=== PATIENT | male | born 1990 | race Caucasian/White ===

== ENCOUNTER 2023-11-11 11:04 | Outpatient (OUT) | payer MEDICAID, SELFPAY ==
[2023-11-11 11:41] LABS: Basophils Percent Auto 0.8 % (0.2-2.0); Eosinophils Absolute Auto 0.4 10^3/uL (0.0-0.7); Hematocrit 49.2 % (42.0-54.0); Hemoglobin 16.8 g/dL (14.0-18.0); Immature Granulocytes Abs Auto 0.01 10^3/uL (0.00-0.03); Immature Granulocytes Pct Auto 0.2 % (0.0-0.5); Mean Corpuscular HGB Conc 34.1 g/dL (29.9-35.2); Mean Corpuscular Hemoglobin 28.6 pg (25.9-34.0); Mean Corpuscular Volume 83.7 fL (80.0-94.0); Mean Platelet Volume 10.4 fL (9.5-13.5); Monocytes Absolute Auto 0.4 10^3/uL (0.3-0.8); Monocytes Percent Auto 7.6 % (1.7-12.0); Neutrophils Absolute Auto 2.2 10^3/uL (1.4-6.5); Neutrophils Percent Auto 44.4 % (43.0-75.0); Platelet Count 225 10^3/uL (150-450); Red Blood Count 5.88 10^6/uL (4.70-6.10)
[2023-11-11 12:18] LABS: Percent Iron Saturation 25.6 %
[2023-11-11 12:19] LABS: Alanine Aminotransferase 62 U/L (16-63); Albumin Globulin Ratio 1.2; Albumin Level 4.2 g/dL (3.4-5.0); Alkaline Phosphatase 66 U/L (46-116); Aspartate Amino Transferase 24 U/L (15-37); Bilirubin Total 0.4 mg/dL (0.2-1.0); Calcium 9.1 mg/dL (8.5-10.1); Carbon Dioxide 27.3 mmol/L (21.0-32.0); Chloride 103 mmol/L (98-107); Chol HDL Ratio 4.5; Cholesterol 215 mg/dL (<=200); Estimated GFR (African America >60 (>=60); Estimated GFR (Non-African Ame >60 (>=60); Free T3 3.26 pg/mL (2.18-3.98); Globulin 3.6 g/dL; Glucose 99 mg/dL (74-106); HDL Cholesterol 48 mg/dL (40-60); Magnesium 2.2 mg/dL (1.8-2.4); Potassium 4.3 mmol/L (3.5-5.1); Sodium 140 mmol/L (136-145); Thyroid Stimulating Hormone 2.165 uIU/mL (0.358-3.740); Total Protein 7.8 g/dL (6.4-8.2); Triglycerides 159 mg/dL (<=150); VLDL CHOLESTEROL 31.8 mg/dL
[2023-11-11 12:50] LABS: Free T4 0.72 ng/dL (0.76-1.46)
== END 2023-11-11 11:05 | disposition home or self-care (01) ==
LOC: LAB 11:04
PROVIDERS: PCP Family Medicine; Visit Provider Family Medicine
DX: E78.2 Mixed hyperlipidemia (principal); F32.0 Major depressive disorder, single episode, mild; D64.9 Anemia, unspecified; E55.9 Vitamin D deficiency, unspecified
CPT/HCPCS: 36415; 80053; 80061; 82306; 82607; 83540; 83550; 83735; 84439; 84443; 84481; 85025

== ENCOUNTER 2024-08-06 10:13 | Outpatient (OUT) | payer MEDICAID, SELFPAY ==
--- OUTSIDE RECORDS SUMMARY | 2024-08-06 10:17 | XMS_ITS | CCD ---
Author Organization [facility] Care Team Providers Care Parer Name Role Phone Rodolfo Zhou Unavailable Unavailable ELIECER MEJIAS~[phone] UNKNOWN Unavailable Unavailable MEJIAS, DR GONZÁLES Attending Unavailable MEJIAS, DR GONZÁLES Consulting Unavailable MEJIAS, DR GONZÁLES Primary Care Unavailable MEJIAS, DR GONZÁLES Admitting Unavailable ELIECER MEJIAS Attending Unavailable ELIECER MEJIAS Attending Unavailable JACKIE NOVAK Attending Unavailable MEJIASELIECER Referring Unavailable JACKIE NOVAK Attending Unavailable MEJIASELIECER Attending Unavailable MEJIASELIECER Referring Unavailable MEJIASELIECER Attending Unavailable Eliecer Mejias MD Primary Care Provider [phone] Ella BANK VAULT CLERK, Mary Unavailable Ashley CANNON, Brittny Smith Unavailable [phone] Eliecer Mejias MD Unavailable Medications Current Medications Medication Drug Class(es) Dates Sig (Normalized) Sig (Original) atomoxetine 40 mg oral capsule (11 sources) Norepinephrine Reuptake Inhibitor Start: 02-03-2024 End: 08-11-2024 take 1 capsule by mouth once daily atomoxetine (Strattera) 40 MG capsule Indications: Attention deficit hyperactivity disorder (ADHD), combined type (CMS/HCC) Take 1 capsule (40 mg) by mouth Daily 30 capsule 07/12/2024 08/11/2024 Active ergocalciferol 1.25 mg oral capsule (6 sources) Provitamin D2 Compound Start: 02-03-2024 End: 07-20-2024 take 1 capsule by mouth every week ergocalciferol (Vitamin D2) 1.25 MG (29684 UT) capsule Indications: Vitamin D deficiency Take 1 capsule (1.25 mg) by mouth 1 (one) time per week 12 capsule 1 02/03/2024 07/20/2024 Active escitalopram 10 mg oral tablet (6 sources) Serotonin Reuptake Inhibitor Start: 10-26-2023 End: 10-19-2024 take 1 tablet by mouth once daily escitalopram (Lexapro) 10 MG tablet Indications: Major depressive disorder, remission status unspecified, unspecified whether recurrent (CMS/HCC) Take 1 tablet (10 mg) by mouth Daily 90 tablet 1 04/22/2024 10/19/2024 Active hydrocortisone 0.025 mg/mg topical ointment (6 sources) Corticosteroid Start: 11-27-2023 hydrocortisone 2.5 % ointment Indications: Keloid scar Apply to affected area arm once a day ONLY WHEN ITCHY and cover with a band aid/30 days 20 g 1 11/27/2023 Active 24 hr methylphenidate hydrochloride 36 mg extended release oral tablet (12 sources) Central Nervous System Stimulant Start: 07-12-2024 take 2 tablets by mouth once daily in the morning methylphenidate ER (Concerta) 36 MG CR tablet Indications: Attention deficit hyperactivity disorder (ADHD), combined type (CMS/HCC) TAKE 2 TABLETS BY MOUTH ONCE DAILY IN THE MORNING 60 tablet 07/12/2024 Active Start: 02-03-2024 End: 07-11-2024 take 2 tablets by mouth once daily in the morning methylphenidate ER (Concerta) 36 MG CR tablet Indications: Attention deficit hyperactivity disorder (ADHD), combined type (CMS/HCC) TAKE 2 TABLETS BY MOUTH ONCE DAILY IN THE MORNING 60 tablet 06/07/2024 07/11/2024 Discontinued (Reorder) Problems Active Problems Problem Classification Problem Date Documented Date Episodic/Chronic Allergic reactions (6 sources) Atopic dermatitis; Translations: [Atopic dermatitis, unspecified] Onset: 06-23-2019 01-21-2023 Chronic Attention-deficit, conduct, and disruptive behavior disorders (10 sources) Attention deficit hyperactivity disorder, combined type; Translations: [Attention-deficit hyperactivity disorder, combined type] 05-11-2024 Chronic Attention-deficit, conduct, and disruptive behavior disorders (6 sources) Attention deficit hyperactivity disorder; Translations: [Attention-deficit hyperactivity disorder, unspecified type] Onset: 08-06-2015 01-21-2023 Chronic Disorders of lipid metabolism (12 sources) Pure hyperglyceridemia; Translations: [Mixed hyperlipidemia] Onset: 04-05-2022 Chronic Mood disorders (6 sources) Major depressive disorder; Translations: [Major depressive disorder, single episode, unspecified] Onset: 01-21-2023 01-21-2023 Chronic Nutritional deficiencies (3 sources) Vitamin D deficiency, unspecified; Translations: [Vitamin D deficiency] Onset: 04-09-2022 05-11-2024 Chronic Other congenital anomalies (6 sources) Congenital pes planus; Translations: [Congenital pes planus, unspecified foot] Onset: 06-02-2011 01-21-2023 Chronic Other nutritional; endocrine; and metabolic disorders (2 sources) Body mass index 30+ - obesity; Translations: [Body mass index (BMI) 31.0-31.9, adult] 05-11-2024 Chronic Other nutritional; endocrine; and metabolic disorders (6 sources) Obese class I; Translations: [Class 1 obesity] Onset: 01-21-2023 01-21-2023 Chronic Other skin disorders (2 sources) Keloid scar; Translations: [Hypertrophic scar] 05-11-2024 Episodic Past or Other Problems Problem Classification Problem Date Documented Date Episodic/Chronic Other nutritional; endocrine; and metabolic disorders (6 sources) Developmental delay; Translations: [Unspecified lack of expected normal physiological development in childhood] Onset: 06-02-2011 01-21-2023 Episodic Other screening for suspected conditions (not mental disorders or infectious disease) (6 sources) Decreased vitamin D; Translations: [Other specified abnormal findings of blood chemistry] Onset: 07-01-2017 01-21-2023 Episodic Residual codes; unclassified (6 sources) Non-smoker; Translations: [Other specified health status] Onset: 06-15-2018 01-21-2023 Episodic Results Test Name Value Interpretation Reference Range Facil ity CBC AUTO DIFFon 04-05-2022 BASO # 0.0 103/ul Normal 0.0-0.1 [facility] Comment on above: Performed By: #### C BC #### [facility] [address] [place], [place] [address] Dr. Oliverio Vicente Basophils/100 WBC (Bld) 0.2 % Normal 0.2-2.0 [facility] Comment on above: Performed By: #### C BC #### [facility] [address] [place] [address] Dr. Oliverio Vicente EO # 0.4 103/ul Normal 0.0-0.7 [facility] Comment on above: Performed By: #### C BC #### [facility] [address] [place] [address] Dr. Oliverio Vicente Eosinophils/100 WBC (Bld) 8.0 % Critically high 0.9-7.0 [facility] Comment on above: Performed By: #### C BC #### [facility] [address] [place] [address] Dr. Oliverio Vicente Erythrocyte distribution width (RBC) [Ratio] 13.2 % Normal 11.0-15.0 [facility] Comment on above: Performed By: #### C BC #### [facility] [address] [place] [address] Dr. Oliverio Vicente Hematocrit (Bld) [Volume fraction] 50.5 % Normal 42.0-54.0 [facility] Comment on above: Performed By: #### C BC #### [facility] [address] [place] [address] Dr. Oliverio Vicente Hemoglobin (Bld) [Mass/Vol] 17.5 g/dL Normal 14.0-18.0 [facility] Comment on above: Performed By: #### C BC #### [facility] [address] [place] [address] Dr. Oliverio Vicente IG # 0.01 10e3/ul Normal 0.00-0.03 [facility] Comment on above: Performed By: #### C BC #### [facility] [address] [place] [address] Dr. Oliverio Vicente IG % 0.2 % Normal 0.0-0.5 [facility] Comment on above: Performed By: #### C BC #### [facility] [address] [place] [address] Dr. Oliverio Vicente LYMPH # 1.6 103/ul Normal 1.2-3.8 [facility] Comment on above: Performed By: #### C BC #### [facility] [address] [place] [address] Dr. Oliverio Vicente Lymphocytes/100 WBC (Bld) 33.9 % Normal 20.5-60.0 [facility] Comment on above: Performed By: #### C BC #### [facility] [address] [place] [address] Dr. Oliverio Vicente MANUAL DIFF REQ NO Normal [facility] Comment on above: Performed By: #### C BC #### [facility] [address] [place] [address] Dr. Oliverio Vicente MCH (RBC) [Entitic mass] 28.6 pg Normal 25.9-34.0 [facility] Comment on above: Performed By: #### C BC #### [facility] [address] [place] [address] Dr. Oliverio Vicente MCHC (RBC) [Mass/Vol] 34.7 g/dL Normal 29.9-35.2 [facility] Comment on above: Performed By: #### C BC #### [facility] [address] [place] [address] Dr. Oliverio Vicente MCV (RBC) [Entitic vol] 82.5 fL Normal 80.0-94.0 [facility] Comment on above: Performed By: #### C BC #### [facility] [address] [place] [address] Dr. Oliverio Viecnte MONO # 0.4 103/ul Normal 0.3-0.8 [facility] Comment on above: Performed By: #### C BC #### [facility] [address] [place] [address] Dr. Oliverio Vicente Monocytes/100 WBC (Bld) 9.1 % Normal 1.7-12.0 [facility] Comment on above: Performed By: #### C BC #### [facility] [address] [place] [address] Dr. Oliverio Vicente NEUT # 2.2 103/ul Normal 1.4-6.5 [facility] Comment on above: Performed By: #### C BC #### [facility] [address] [place] [address] Dr. Oliverio Vicente Neutrophils/100 WBC (Bld) 48.6 % Normal 43.0-75.0 [facility] Comment on above: Performed By: #### C BC #### [facility] [address] [place] [address] Dr. Oliverio Vicente Platelet mean volume (Bld) [Entitic vol] 9.5 fL Normal 9.5-13.5 [facility] Comment on above: Performed By: #### C BC #### [facility] [address] [address] [address] Oliverio Vicente PLT 199 103/ul Normal 150-450 [facility] Comment on above: Performed By: #### C BC #### [facility] [address] [place] [address] Dr. Oliverio Vicente RBC 6.12 106/ul Critically high 4.70-6.10 [facility] Comment on above: Performed By: #### C BC #### [facility] [address] [place] [address] Dr. Oliverio Vicente WBC 4.6 103/ul Normal 4.0-11.0 [facility] Comment on above: Performed By: #### C BC #### [facility] [address] [place] [address] Dr. Oliverio Vicente LIPID PROFILEon 04-05-2022 CHOL-HDL RATIO NORM SEE BELOW Normal [facility] Comment on above: Result Comment: 3.3 - 4.4 LOW RISK 4.4 - 7.1 AVERAGE RISK 7.1 - 11.0 MODERATE RISK >11.0 HIGH RISK Performed By: #### C MP, LIPID, TSH #### [facility] [address] [place] [address] Dr. Oliverio Vicente Cholesterol [Mass/Vol] 236 mg/dL Critically high <=200 [facility] Comment on above: Performed By: #### C MP, LIPID, TSH #### [facility] [address] [place] [address] Dr. Oliverio Vicente Cholesterol in HDL [Mass/Vol] 51 mg/dL Normal 40-60 [facility] Comment on above: Performed By: #### C MP, LIPID, TSH #### [facility] [address] [address] [address] Oliverio Vicente Cholesterol in LDL [Mass/Vol] 144.8 mg/dL Normal [facility] Comment on above: Performed By: #### C MP, LIPID, TSH #### [facility] [address] [address] [address] Oliverio Vicente Cholesterol.total/C holesterol in HDL [Mass ratio] 4.6 {ratio} Normal [facility] Comment on above: Performed By: #### C MP, LIPID, TSH #### [facility] [address] [address] [address] Oliverio Vicente HDL NORMAL > or = 60 mg/dl - LO W CARDIOVASCULAR RISK <40 mg/dl - HIGH CARDIOVASCULAR RISK Normal [facility] Comment on above: Performed By: #### C MP, LIPID, TSH #### [facility] [address] [address] [address] Oliverio Vicente LDL CALC NORMAL SEE BELOW Normal [facility] Comment on above: Result Comment: <100 mg/dl OPTIMAL 100 - 129 mg/dl NEAR OR ABOVE OPTIMAL 130 - 159 mg/dl BORDERLINE HIGH 160 - 189 mg/dl HIGH >190 mg/dl VERY HIGH Performed By: #### C MP, LIPID, TSH #### [facility] [address] [place] [address] Dr. Oliverio Vicente Triglyceride [Mass/Vol] 201 mg/dL Critically high <=150 [facility] Comment on above: Performed By: #### C MP, LIPID, TSH #### [facility] [address] [address] [address] Oliverio Vicente VLDL CALC 40.2 mg/dL Normal [facility] Comment on above: Performed By: #### C MP, LIPID, TSH #### [facility] [address] [place] [address] Dr. Oliverio Vicente PROF 14(COMP METB)on 022 Albumin [Mass/Vol] 4.6 g/dL Normal 3.4-5.0 [facility] Comment on above: Performed By: #### C MP, LIPID, TSH #### [facility] [address] [address] [address] Oliverio Vicente Albumin/Globulin [Mass ratio] 1.3 {ratio} Normal [facility] Comment on above: Performed By: #### C MP, LIPID, TSH #### [facility] [address] [address] [address] Oliverio Vicente ALP [Catalytic activity/Vol] 77 U/L Normal 46-116 [facility] Comment on above: Performed By: #### C MP, LIPID, TSH #### [facility] [address] [address] [address] Oliverio Vicente ALT [Catalytic activity/Vol] 64 U/L Critically high 16-63 [facility] Comment on above: Performed By: #### C MP, LIPID, TSH #### [facility] [address] [address] [address] Oliverio Vicente Anion gap [Moles/Vol] 11.9 mmol/L Normal [facility] Comment on above: Performed By: #### C MP, LIPID, TSH #### [facility] [address] [address] [address] Oliverio Vicente AST [Catalytic activity/Vol] 27 U/L Normal 15-37 [facility] Comment on above: Performed By: #### C MP, LIPID, TSH #### [facility] [address] [address] [address] Oliverio Vicente Bilirubin [Mass/Vol] 0.5 mg/dL Normal 0.2-1.0 [facility] Comment on above: Performed By: #### C MP, LIPID, TSH #### [facility] [address] [address] [address] Oliverio Vicente Calcium [Mass/Vol] 9.1 mg/dL Normal 8.5-10.1 [facility] Comment on above: Performed By: #### C MP, LIPID, TSH #### [facility] [address] [address] [address] Oliverio Vicente Chloride [Moles/Vol] 100 mmol/L Normal 98-107 [facility] Comment on above: Performed By: #### C MP, LIPID, TSH #### [facility] [address] [address] [address] Oliverio Vicente CO2 [Moles/Vol] 28.1 mmol/L Normal 21.0-32.0 [facility] Comment on above: Performed By: #### C MP, LIPID, TSH #### [facility] [address] [address] [address] Oliverio Vicente Creatinine [Mass/Vol] 0.95 mg/dL Normal 0.70-1.30 [facility] Comment on above: Performed By: #### C MP, LIPID, TSH #### [facility] [address] [address] [address] Oliverio Vicente EGFR-AF LITHUANIAN >60 Normal >=60 [facility] Comment on above: Performed By: #### C MP, LIPID, TSH #### [facility] [address] [place] [address] Dr. Oliverio Vicente EGFR-NON AF LITHUANIAN >60 Normal >=60 [facility] Comment on above: Performed By: #### C MP, LIPID, TSH #### [facility] [address] [address] [address] Oliverio Vicente Globulin (S) [Mass/Vol] 3.5 g/dL Normal [facility] Comment on above: Performed By: #### C MP, LIPID, TSH #### [facility] [address] [address] [address] Oliverio Vicente Glucose [Mass/Vol] 102 mg/dL Normal 74-106 [facility] Comment on above: Performed By: #### C MP, LIPID, TSH #### [facility] [address] [address] [address] Oliverio Vicente Potassium [Moles/Vol] 4.0 mmol/L Normal 3.5-5.1 [facility] Comment on above: Performed By: #### C MP, LIPID, TSH #### [facility] [address] [address] [address] Oliverio Vicente Protein [Mass/Vol] 8.1 g/dL Normal 6.4-8.2 [facility] Comment on above: Performed By: #### C MP, LIPID, TSH #### [facility] [address] [place] [address] Dr. Oliverio Vicente Sodium [Moles/Vol] 136 mmol/L Normal 136-145 [facility] Comment on above: Performed By: #### C MP, LIPID, TSH #### [facility] [address] [place] [address] Dr. Oliverio Vicente Urea nitrogen [Mass/Vol] 15.0 mg/dL Normal 7.0-18.0 [facility] Comment on above: Performed By: #### C MP, LIPID, TSH #### [facility] [address] [place] [address] Dr. Oliverio Vicente Urea nitrogen/Creatinine [Mass ratio] 15.8 mg/mg Normal [facility] Comment on above: Performed By: #### C MP, LIPID, TSH #### [facility] [address] [place] [address] Dr. Oliverio Vicente TSHon 04-05-2022 TSH 1.970 uIU/mL Normal 0.358-3.740 [facility] Comment on above: Performed By: #### C MP, LIPID, TSH #### [facility] [address] [place] [address] Dr. Oliverio Vicente VITAMIN D 25 OHon 04-05-2022 VIT D 25-OH 26.5 ng/mL Normal [facility] Comment on above: Performed By: #### V ITAD #### [facility] [address] [place] [address] Dr. Oliverio Vicente VIT D RANGES SEE BELOW Normal [facility] Comment on above: Result Comment: <20 ng/mL Vit D deficient 20 - <30 ng/mL Vit D insufficient 30 - 100 ng/mL Vit D sufficient >100 ng/mL Potential Toxicity Performed By: #### V ITAD #### [facility] [address] [place] [address] Dr. Oliverio Vicente Vital Signs Date Time Vital Sign Value Performing Clinician Faci lity 05-11-2024 09:38-0400 Body height 172.7 cm Eliecer Mejias MD Work Phone: [facility] 05-11-2024 09:38-0400 Body mass index (BMI) [Ratio] 31.63 kg/m2 Eliecer Mejias MD Work Phone: [facility] 05-11-2024 09:38-0400 Body temperature 97.11 [degF] Eliecer Mejias MD Work Phone: [facility] 05-11-2024 09:38-0400 Body weight 94.35 kg Eliecer Mejias MD Work Phone: [facility] 05-11-2024 09:38-0400 Diastolic blood pressure 80 mm[Hg] Eliecer Mejias MD Work Phone: [facility] 05-11-2024 09:38-0400 Heart rate 86 /min Eliecer Mejias MD Work Phone: [facility] 05-11-2024 09:38-0400 Respiratory rate 16 /min Eliecer Mejias MD Work Phone: [facility] 05-11-2024 09:38-0400 SaO2% (BldA) [Mass fraction] 93 % Eliecer Mejias MD Work Phone: [facility] 05-11-2024 09:38-0400 Systolic blood pressure 122 mm[Hg] Eliecer Mejias MD Work Phone: [facility] Healthcare Encounters Encounter Date Encounter Type Care Provider Facility Start: 07-11-2024 End: 07-12-2024 Refill Miguelina Sanchez MA [facility] Comment on above: Attention deficit hy peractivity disorder (ADHD), combined type (CMS/HCC) Start: 06-06-2024 End: 06-07-2024 Refill Eliecer Mejias MD Work Phone: [facility] Comment on above: Attention deficit hy peractivity disorder (ADHD), combined type (CMS/HCC) Start: 05-11-2024 End: 05-11-2024 Office outpatient visit 25 minutes Eliecer Mejias MD Work Phone: [facility] Comment on above: Attention deficit hy peractivity disorder (ADHD), combined type (CMS/HCC) (Primary Dx); Vitamin D deficiency; BMI 31.0-31.9,adult; Keloid of skin; Adult wellness visit; Mixed hyperlipidemia (CMS/HCC) Start: 05-11-2024 End: 05-11-2024 Patient encounter status Eliecer Mejias MD Work Phone: [facility] Start: 05-11-2024 End: 05-11-2024 ambulatory ELIECER MEJIAS Not Available Start: 04-05-2024 End: 04-05-2024 Refill Eliecer Mejias MD Work Phone: [facility] Comment on above: Attention deficit hy peractivity disorder (ADHD), combined type (CMS/HCC) Start: 03-09-2024 End: 03-09-2024 Refill Eliecer Mejias MD Work Phone: [facility] Comment on above: Attention deficit hy peractivity disorder (ADHD), combined type (CMS/HCC) Start: 02-03-2024 End: 02-03-2024 ambulatory ELIECER MEJIAS Not Available Start: 01-08-2024 End: 01-08-2024 ambulatory JACKIE NOVAK Not Available Start: 11-27-2023 End: 11-27-2023 ambulatory JACKIEBUCK GUAJARDOM Not Available Start: 10-28-2023 End: 10-28-2023 ambulatory ELIECER MEJIAS Not Available Start: 07-29-2023 End: 07-29-2023 ambulatory ELIECER MEJIAS Not Available Start: 04-05-2022 End: 04-06-[address] ELIECER MEJIAS Facility: Start: 02-04-2017 End: 02-05-2017 Ambulatory Rodolfo Jessicajorge Facility:[id number] Plan of Treatment Date Care Activity Detail Author Start: 08-10-2024 End: 08-10-2024 Patient encounter procedure 08/10/2024 10:00 AM EST Office Visit [facility] [address] [place] [id number] Eliecer Mejias MD [address] [place] [address] [facility] Start: 05-11-2024 End: 05-11-2025 25-hydroxyvitamin D3 [Mass/volume] in Serum or Plasma Vitamin D 25 hydroxy Total Lab Routine Vitamin D deficiency Expected: 05/11/2024 (Approximate), Expires: 05/11/2025 [facility] Comment on above: Expected: 05/11/2024 (Approximate), Expires: 05/11/2025 Start: 05-11-2024 End: 05-11-2025 CBC W Auto Differential panel - Blood CBC and differential Lab Routine Adult wellness visit Expected: 05/11/2024 (Approximate), Expires: 05/11/2025 [facility] Work Phone: Comment on above: Expected: 05/11/2024 (Approximate), Expires: 05/11/2025 Start: 05-11-2024 End: 05-11-2025 Comprehensive metabolic 2000 panel - Serum or Plasma Comprehensive metabolic panel Lab Routine Adult wellness visit Expected: 05/11/2024 (Approximate), Expires: 05/11/2025 [facility] Comment on above: Expected: 05/11/2024 (Approximate), Expires: 05/11/2025 Start: 05-11-2024 End: 11-09-2024 Lipid 1996 panel - Serum or Plasma Lipid panel Lab Routine Mixed hyperlipidemia (CMS/HCC) Expected: 05/11/2024 (Approximate), Expires: 11/09/2024 [facility] Comment on above: Expected: 05/11/2024 (Approximate), Expires: 11/09/2024 Start: 05-11-2024 End: 05-11-2025 Thyroxine (T4) free [Mass/volume] in Serum or Plasma T4, free Lab Routine Attention deficit hyperactivity disorder (ADHD), combined type (CMS/HCC) Expected: 05/11/2024 (Approximate), Expires: 05/11/2025 [facility] Comment on above: Expected: 05/11/2024 (Approximate), Expires: 05/11/2025 Start: 05-11-2024 End: 05-11-2024 Patient encounter procedure 05/11/2024 9:40 AM EDT Office Visit [facility] [address] [place] [id number] Eliecer Mejias MD [address] [place] [address] [facility] Start: 03-13-2024 Influenza vaccination Influenza Vacc ine (#1) [facility] Magnesium [Mass/volu me] in Serum or Plasma Magnesium Lab Routine Mixed hyperlipidemia (CMS/HCC) Ordered: 05/11/2024 [facility] Comment on above: Ordered: 05/11/2024 Thyrotropin [Units/volume] in Serum or Plasma TSH Lab Routine Attention deficit hyperactivity disorder (ADHD), combined type ([facility]/HCC) Ordered: 05/11/2024 [facility] Comment on above: Ordered: 05/11/2024 Immunizations Immunization Date Immunization Notes Care Provider Fa [facility] 04-22-2023 Influenza, injectabl e, Madin [place] Canine Kidney, preservative free, quadrivalent Eliecer Mejias MD Work Phone: [facility] 04-22-2023 influenza virus vacc ine, unspecified formulation Eliecer Mejias MD Work Phone: [facility] 06-07-2021 influenza, injectabl e, quadrivalent, preservative free Eliecer Mejias MD Work Phone: [facility] 06-01-2009 novel influenza-H1N1 -09, preservative-free, injectable Eliecer Mejias MD Work Phone: [facility] 03-02-2009 tetanus toxoid, redu phoebe diphtheria toxoid, and acellular pertussis vaccine, adsorbed Eliecer Mejias MD Work Phone: [facility] 05-22-2003 hepatitis B vaccine, pediatric or pediatric/adolescent dosage Eliecer Mejias MD Work Phone: [facility] 04-25-2002 hepatitis B vaccine, pediatric or pediatric/adolescent dosage Eliecer Mejias MD Work Phone: [facility] 03-23-2002 diphtheria, tetanus toxoids and acellular pertussis vaccine, unspecified formulation Eliecer Mejias MD Work Phone: [facility] 03-23-2002 hepatitis B vaccine, pediatric or pediatric/adolescent dosage Eliecer Mejias MD Work Phone: [facility] 03-23-2002 measles, mumps and rubella virus vaccine Eliecer Mejias MD Work Phone: [facility] 03-23-2002 poliovirus vaccine, unspecified formulation Eliecer Mejias MD Work Phone: [facility] 12-22-1990 diphtheria, tetanus toxoids and acellular pertussis vaccine, unspecified formulation Eliecer Mejias MD Work Phone: [facility] 12-22-1990 poliovirus vaccine, unspecified formulation Eliecer Mejias MD Work Phone: [facility] 07-23-1990 haemophilus influenz ae type b vaccine, conjugate unspecified formulation Eliecer Mejias MD Work Phone: [facility] 07-23-1990 measles, mumps and rubella virus vaccine Eliecer Mejias MD Work Phone: [facility] 1989 diphtheria, tetanus toxoids and acellular pertussis vaccine, unspecified formulation Eliecer Mejias MD Work Phone: [facility] 1989 diphtheria, tetanus toxoids and acellular pertussis vaccine, unspecified formulation Eliecer Mejias MD Work Phone: [facility] 1989 poliovirus vaccine, unspecified formulation Eliecer Mejias MD Work Phone: [facility] 1989 diphtheria, tetanus toxoids and acellular pertussis vaccine, unspecified formulation Eliecer Mejias MD Work Phone: [facility] 1989 poliovirus vaccine, unspecified formulation Eliecer Mejias MD Work Phone: [facility] Payers Date Payer Category Payer Medicaid [id number] 2022 Medicaid [id number] 2017 Unknown [id number] 1989 Unknown [id number] 2.16.84 [id number] 1989 Unknown [id number] 2.16.84 [id number] 1989 Unknown [id number] 2.16.84 [id number] 1989 Unknown [id number] 2.16.84 [id number] 1989 Unknown [id number] 2.16.84 [id number] 1989 Unknown [id number] 2.16.84 [id number] 1989 Unknown [id number] 2.16.84 [id number] 1959 Unknown [id number] Social History Date Type Detail Facility Start: 01-21-2023 Tobacco smoking status [facility] Never sm oked tobacco [facility] Start: 01-21-2023 Tobacco use and exposure Smoke less tobacco non-user [facility] Start: 02-03-2024 End: 05-11-2024 Alcoholic beverage intake Current drinker of alcohol (finding) [facility] Start: 04-01-2023 End: 04-22-2023 [facility] of [facility] Start: 04-01-2023 End: 04-22-2023 Alcohol Use Disorder Identification Test - Consumption [AUDIT-C] [facility] How often to you hav e a drink containing alcohol? Never [facility] How many standard dr inks containing alcohol do you have on a typical day? Patient does not drink [facility] Start: 04-08-2023 Alcohol Comment caffeine: 1-2 cups per day [facility] Start: 1990 Sex assigned at Not on file [facility] Clinical Notes 03-09-2024 to 06-06-2024 Telephone Encounter - Joaquín Avila - 06/06/2024 1:26 PM ESTTelephone Encounter - Joaquín Avila - 06/06/2024 1:26 PM Suasn Mejias MD - 05/11/2024 9:40 AM EDT Note Date & Type Note Facility 06-06-2024 Telephone encount er Note 06/06/24 sent to nurse to review and send to [facility] in [place] [facility] 06-06-2024 Miscellaneous Notes Formattin g of this note might be different from the original. 06/06/24 sent to nurse to review and send to [facility] in [place] documented in this encounter [facility] 05-11-2024 History of Presen t illness Narrative Images from the original note were not included. CHIEF COMPLAINT Pt is here for a 3 month follow up. Pt would like the spot looked at on his right arm. SUBJECTIVE History of Present Illness CURRENT MEDICATIONS Current Outpatient Medications: ergocalciferol (Vitamin D2) 1.25 MG (12684 UT) capsule, Take 1 capsule (1.25 mg) by mouth 1 (one) time per week, Disp: 12 capsule, Rfl: 1 escitalopram (Lexapro) 10 MG tablet, Take 1 tablet (10 mg) by mouth Daily, Disp: 90 tablet, Rfl: 1 hydrocortisone 2.5 % ointment, Apply to affected area arm once a day ONLY WHEN ITCHY and cover with a band aid/30 days, Disp: 20 g, Rfl: 1 methylphenidate ER (Concerta) 36 MG CR tablet, TAKE 2 TABLETS BY MOUTH ONCE DAILY IN THE MORNING, Disp: 60 tablet, Rfl: 0 atomoxetine (Strattera) 40 MG capsule, Take 1 capsule (40 mg) by mouth Daily, Disp: 30 capsule, Rfl: 0 RECENT VITAL SIGNS 04/01/2023 11:33 AM 04/08/2023 9:11 AM 04/22/2023 9:46 AM 07/29/2023 9:50 AM 10/28/2023 9:03 AM 02/03/2024 9:20 AM 05/11/2024 9:38 AM Vitals BMI 30.56 kg/m2 31.7 kg/m2 30.96 kg/m2 31.02 kg/m2 31.32 kg/m2 31.02 kg/m2 31.63 kg/m2 BSA (m2) 2.09 m2 2.08 m2 2.11 m2 2.11 m2 2.12 m2 2.11 m2 2.13 m2 Systolic 132 130 120 142 134 138 122 Diastolic 90 80 70 80 80 88 80 Heart Rate 143 94 90 101 105 107 86 SpO2 96 % 97 % 96 % 96 % 96 % 98 % 93 % Temp 97.6 F 97 F 96.7 F 97.1 F 97.6 F 97.1 F Resp 16 16 16 16 16 16 Height (in) 5' 7 5' 8 5' 8 5' 8 Weight (lb) 201 202.4 203.6 204 206 204 208 Visit Report Report Report Report Report RECENT LABS No results found for this or any previous visit (from the past 6 weeks). OBJECTIVE Physical Exam Vitals and nursing note reviewed. Constitutional: Appearance: Normal appearance. He is normal weight. HENT: Head: Normocephalic and atraumatic. Right Ear: Tympanic membrane normal. Left Ear: Tympanic membrane normal. Eyes: Extraocular Movements: Extraocular movements intact. Pupils: Pupils are equal, round, and reactive to light. Cardiovascular: Rate and Rhythm: Normal rate and regular rhythm. Pulses: Normal pulses. Heart sounds: Normal heart sounds. Pulmonary: Effort: Pulmonary effort is normal. Breath sounds: Normal breath sounds. Abdominal: General: Abdomen is flat. Palpations: Abdomen is soft. Musculoskeletal: General: Normal range of motion. Cervical back: Normal range of motion. Skin: General: Skin is warm. Capillary Refill: Capillary refill takes less than 2 seconds. Findings: Lesion present. Comments: Small keloid lesion to the right forearm Neurological: General: No focal deficit present. Mental Status: He is alert and oriented to person, place, and time. Mental status is at baseline. Psychiatric: Mood and Affect: Mood normal. Behavior: Behavior normal. Thought Content: Thought content normal. Judgment: Judgment normal. ASSESSMENT/PLAN Problem List Items Addressed This Visit Other Attention deficit hyperactivity disorder (ADHD) ([facility]) - Primary Patient is being evaluated for adult ADHD and will do a trial of medication and follow up as an appropriate time and will evaluate OARRS report Relevant Medications atomoxetine (Strattera) 40 MG capsule methylphenidate ER (Concerta) 36 MG CR tablet Other Relevant Orders TSH T4, free Hyperlipidemia ([facility]) Reviewed most recent lipid panel or ordered new labs if needed. It is important to maintain LDL at specified goal. The risks associated with hyperlipidemia including stroke and heart attack. Take medications as directed. Dietary modifications include decreasing red meat consumption, decreasing alcohol consumption, avoiding fried fatty foods and cakes, cookies, and sweets. You are encouraged to increase fiber in your diet and eat a diet rich in omega-3. You are encouraged to exercise at least 150 minutes weekly. Barriers to the plan of care have been addressed. Obtain labs as directed and call our office if you have not received the lab results within one week. Follow up as directed. Patient has been given a copy of the plan of care. Relevant Orders Lipid panel Magnesium Other Visit Diagnoses Vitamin D deficiency Take medication as directed. Encouraged to obtain 20 minutes of direct sunlight daily during peak hours of sunlight. Consume food sources high in Vitamin D. Repeat labs as instructed. I recommend the vitamin d level between 40-60. Relevant Orders Vitamin D 25 hydroxy Total BMI 31.0-31.9,adult Your BMI is currently in the overweight or obese range. Low calorie or reduced carbohydrate diet is encouraged. It is recommend to journal food intake and exercise performance either using a simple paper/calendar system or downloading the [employer] application to track calorie consumption, food intake, exercise performance. You can also investigate Weight Watchers as a possible diet plan. Start with at least 150 minutes of exercise weekly and increase to a goal of 60 minutes per day. It is important to identify barriers to the following treatment plan. Keloid of skin Stable and no changes Adult wellness visit Stable Relevant Orders CBC and differential Comprehensive metabolic panel FOLLOW-UP No follow-ups on file. documented in this encounter [facility] 04-05-2024 Telephone encount er Note Patient needs refills on the attached/ [facility] 04-05-2024 Miscellaneous Notes Formattin g of this note might be different from the original. Patient needs refills on the attached/ [facility] documented in this encounter [facility] 03-09-2024 Telephone encount er Note [facility] 03-09-2024 Miscellaneous Notes Formattin g of this note might be different from the original. [facility] documented in this encounter [facility] Evaluation note Diagnosis Attention deficit hyperactivity disorder (ADHD), combined type (CMS/HCC)- Primary Vitamin D deficiency BMI 31.0-31.9,adult Keloid of skin Keloid scar Adult wellness visit Mixed hyperlipidemia (CMS/HCC) Mixed hyperlipidemia [facility] Diagnosis Attention deficit hyperactivity disorder (ADHD), combined type (CMS/HCC) [facility] Diagnosis Attention deficit hyperactivity disorder (ADHD), combined type (CMS/HCC) [facility] Diagnosis Attention deficit hyperactivity disorder (ADHD), combined type (CMS/HCC) documented in this encounter [facility] Summary Purpose Family History No Family History Records FoundNo Family History Records FoundNo Family History Records Found Advance Directives No Advanced Directives Records FoundNo Advanced Directives Records FoundNo Advanced Directives Records Found Reason for Referral Specialty Diagnoses / Procedures Referred By Contac t Referred To Contact Diagnoses Attention deficit hyperactivity disorder (ADHD), combined type (CMS/HCC) Eliecer Mejias MD [address] [place] [address] Referral ID Status Reason Start Date Expiration Date V isits Requested Visits Authorized [id number] Pending Review 1 1 Additional Source Comments (unrecognized sect ion and content) No Status Records FoundNo Status Records FoundNo Status Records Found INFORMATION SOURCE (unrecogn ized section and content) DATE CREATED AUTHOR 01/06/2018 [facility] DATE CREATED AUTHOR AUTHOR'S ORGANIZ ATION 07/02/2022 [facility] DATE CREATED AUTHOR AUTHOR'S ORGANIZ ATION 05/12/2024 [facility] Care Teams (unrecognized sec tion and content) Parer Relationship Specialty Start Date End Date Eliecer Mejias MD [address] [place] [address] PCP - General Family Medicine 12/19/22 Eliecer Mejias MD [address] [place] [address] PCP - [facility] 10/12/23 Mary Jaramillo [employer] [address] [place] [address] Nurse Practitioner Family Medicine 04/03/23 Brittny Ramirez NP [address] [place] [address] Nurse Practitioner Pulmonary Disease 04/03/23 Parer Relationship Specialty Start Date End Date Eliecer Mejias MD [address] [place] [address] PCP - General Family Medicine 12/19/22 Eliecer Mejias MD [address] [place] [address] PCP - [facility] 10/12/23 Mary Jaramillo [employer]ERK [address] [place] [address] Nurse Practitioner Family Medicine 04/03/23 Brittny Ramirez NP [address] [place] [id number] Nurse Practitioner Pulmonary Disease 04/03/23 Parer Relationship Specialty Start Date End Date Eliecer Mejias MD [address] [place] [address] PCP - General Family Medicine 12/19/22 Mary Jaramillo NP [address] [place] [address] Nurse Practitioner Family Medicine 04/03/23 Brittny Ramirez NP [address] [place] [id number] Nurse Practitioner Pulmonary Disease 04/03/23 Parer Relationship Specialty Start Date End Date Eliecer Mejias MD [address] [place] [address] PCP - General Family Medicine 12/19/22 Mary Jaramillo NP [address] [place] [place] [address] Nurse Practitioner Family Medicine 04/03/23 Brittny Ramirez NP [address] [place] [address] Nurse Practitioner Pulmonary Disease 04/03/23 Parer Relationship Specialty Start Date End Date Eliecer Mejias MD [address] [place] [address] PCP - General Family Medicine 12/19/22 Eliecer Mejias MD [address] [place] [address] PCP - [facility] [employer] 10/12/23 Mary Jaramillo NP [address] [place] [address] Nurse Practitioner Family Medicine 04/03/23 Brittny Ramirez NP [address] [place] [address] Nurse Practitioner Pulmonary Disease 04/03/23 Reason for Visit (unrecogniz ed section and content) Reason Onset Date Comments Med Refill 06/06/2024 Reason Onset Date Comments Med Refill 03/09/2024 Reason Onset Date Comments Med Refill 04/05/2024 Reason Onset Date Comments Med Refill 07/11/2024 FOR RECORDS PERTAINING TO PATIENTS WHO ARE OR HAVE BEEN ENROLLED IN A CHEMICAL DEPENDENCY/SUBSTANCEABUSE PROGRAM, SOME INFORMATION MAY BE OMITTED. This clinical summary was aggregated from multiple sources. Caution should be exercised in using it in the provision of clinical care. This summary normalizes information from multiple sources, and as a consequence, information in this document may materially change the coding, format and clinical context of patient data. In addition, data may be omitted in some cases. CLINICAL DECISIONS SHOULD BE BASED ON THE PRIMARY CLINICAL RECORDS. [facility] [employer] [facility]. provides no warranty or guarantee of the accuracy or completeness of information in this document.
[2024-08-06 10:28] LABS: Basophils Percent Auto 0.7 % (0.2-2.0); Eosinophils Absolute Auto 0.4 10^3/uL (0.0-0.7); Eosinophils Percent Auto 6.6 % (0.9-7.0); Hematocrit 48.6 % (42.0-54.0); Hemoglobin 17.1 g/dL (14.0-18.0); Immature Granulocytes Abs Auto 0.02 10^3/uL (0.00-0.03); Immature Granulocytes Pct Auto 0.4 % (0.0-0.5); Lymphocytes Absolute Auto 1.9 10^3/uL (1.2-3.8); Mean Corpuscular HGB Conc 35.2 g/dL (29.9-35.2); Mean Corpuscular Hemoglobin 29.3 pg (25.9-34.0); Mean Corpuscular Volume 83.2 fL (80.0-94.0); Mean Platelet Volume 9.9 fL (9.5-13.5); Monocytes Absolute Auto 0.4 10^3/uL (0.3-0.8); Monocytes Percent Auto 7.5 % (1.7-12.0); Neutrophils Absolute Auto 2.9 10^3/uL (1.4-6.5); Neutrophils Percent Auto 51.8 % (43.0-75.0); Platelet Count 223 10^3/uL (150-450); Red Blood Count 5.84 10^6/uL (4.70-6.10); Red Cell Distribution Width 12.8 % (11.0-15.0); White Blood Count 5.6 10^3/uL (4.0-11.0)
[2024-08-06 11:28] LABS: Alanine Aminotransferase 66 U/L (16-63); Albumin Globulin Ratio 1.3; Albumin Level 4.3 g/dL (3.4-5.0); Alkaline Phosphatase 66 U/L (46-116); Anion Gap 12.3; Aspartate Amino Transferase 28 U/L (15-37); BUN Creatinine Ratio 13.9; Bilirubin Total 0.5 mg/dL (0.2-1.0); Calcium 8.8 mg/dL (8.5-10.1); Carbon Dioxide 31.1 mmol/L (21.0-32.0); Chloride 101 mmol/L (98-107); Chol HDL Ratio 5.5; Cholesterol 225 mg/dL (<=200); Estimated GFR (African America >60 (>=60 mL/min/1.73m^2); Estimated GFR (Non-African Ame >60 (>=60 mL/min/1.73m^2); Globulin 3.4 g/dL; Glucose 94 mg/dL (74-106); HDL Cholesterol 41 mg/dL (40-60); Potassium 4.4 mmol/L (3.5-5.1); Sodium 140 mmol/L (136-145); Total Protein 7.7 g/dL (6.4-8.2); Triglycerides 226 mg/dL (<=150); VLDL CHOLESTEROL 45.2 mg/dL
[2024-08-06 11:52] LABS: Free T4 0.77 ng/dL (0.76-1.46)
== END 2024-08-06 10:14 | disposition home or self-care (01) ==
LOC: LAB 10:16
PROVIDERS: PCP Family Medicine; Visit Provider Family Medicine
DX: Z00.00 Encounter for general adult medical examination without abnormal findings (principal); F90.2 Attention-deficit hyperactivity disorder, combined type; E55.9 Vitamin D deficiency, unspecified; E78.2 Mixed hyperlipidemia
CPT/HCPCS: 36415; 80053; 80061; 82306; 84439; 85025